=== PATIENT | male | born 1985 | race Caucasian/White ===

== ENCOUNTER 2019-08-21 09:32 | Emergency (ER) | payer BC ==
--- NOTE | 2019-08-21 09:45 | UC ---
General HPI - HPI Summary HPI Summary: Symptoms 5 days, nasal congestion, cough [place] like fluid in lungs now raspy cough No sick contacts No travel No seasonal allergies No shortness of breath [employer] No fever On sinus medication daily No inhaler use in the past Remote smoker - History of Current Complaint Chief Complaint: UCRespiratory Stated Complaint: COUGH, SINUS COMPLAINT Time Seen by Provider: 08/21/19 09:43 Pain Intensity: 0 - Allergy/Home Medications Allergies/Adverse Reactions: Allergies Allergy/AdvReac Type Severity Reaction Status Date / Time No Known Allergies Allergy Verified 08/21/19 09:37 Home Medications: Home Medications Phenylephrine HCl/Acetaminophn [Gnp Day Time Sinus] 1 cap PO PRN 08/21/19 [ History] PMH/Surg Hx/FS Hx/Imm Hx Previously Healthy: Yes - Surgical History Surgical History: None - Social History Alcohol Use: Occasionally Substance Use Type: None Smoking Status (MU): Current Some Day Smoker Type: Cigarettes Amount Used/How Often: couple times a month Review of Systems All Other Systems Reviewed And Are Negative: Yes Physical Exam Triage Information Reviewed: Yes Appearance: Well-Appearing Vital Signs Reviewed: Yes Eyes: Positive: Conjunctiva Clear Respiratory: Positive: Other: - Exam via zoom; No visible respiratory distress Neurological: Positive: Alert Psychological Exam: Normal Course/Dx - Course Course Of Treatment: This is a 34 year old with congestion and raspy cough COVID testing sent Plan Recommend decongestant such as sudafed, Flonase: nasal spray and nasal saline rinses Continue to drink plenty of fluids and tylenol as needed We will contact you with COVID19 results, continue to self quarantine until results are back If you develop any shortness of breath or chest pain - recommend go to the ER - Diagnoses Provider Diagnosis: Viral syndrome Discharge ED - Sign-Out/Discharge Documenting (check all that apply): Patient Departure All imaging exams completed and their final reports reviewed: No Studies - Discharge Plan Condition: Fair Disposition: HOME Forms: COVID-19 Tested & Isolation Referrals: No Primary Care Phys,NOPCP [Primary Care Provider] - [facility] [place] [facility] [Outside] Additional Instructions: Recommend decongestant such as sudafed, Flonase: nasal spray and nasal saline rinses Continue to drink plenty of fluids and tylenol as needed We will contact you with COVID19 results, continue to self quarantine until results are back If you develop any shortness of breath or chest pain - recommend go to the ER - Billing Disposition and Condition Condition: FAIR Disposition: Home
[2019-08-21 10:11] VITALS: BP 148/73
== END 2019-08-21 10:40 | disposition home or self-care (01) ==
LOC: UCCORT 09:32
DX: B34.9 Viral infection, unspecified (principal); Z20.828 Contact with and (suspected) exposure to other viral communicable diseases; Z72.0 Tobacco use
CPT/HCPCS: 87635; 99201; G0463